=== PATIENT | female | born 1945 | race Caucasian/White ===

== ENCOUNTER → 2016-08-12 | Outpatient (CLI) | payer MEDICARE, OTHER ==
[~2016-08-12] MED LIST: CELEBREX 200MG200 MG PO; DUO-KAPS1 CAP PO; PRIL40 PO; SINGULAIR 110 MG/TAB PO; ZESTRIL 5MG5 MG PO
== END ==
LOC: ZLAB.ENT 17:14
DX: Z02.89 Encounter for other administrative examinations (principal)

== ENCOUNTER 2016-11-22 09:30 | Outpatient (RCR) | payer MEDICARE, OTHER | END 2017-01-16 | disposition home or self-care (01) | LOC: WSST | DX: R49.0 Dysphonia (principal) | CPT/HCPCS: G9171-GN; G9172-GN ==